=== PATIENT | female | born 1930 | race Caucasian/White ===

== ENCOUNTER → 2016-07-06 10:14 | Outpatient (CLI) | payer MEDICARE, OTHER ==
[~2016-07-06 10:14] MED LIST: ACETAMINOPHEN500 M1 PO; ALEVE220 MG PO; ASPIRIN325 MG PO; BAYER CHEWABLE81 MG PO; CALCIUM 600+D T1 TA1 PO; COLACE100 MG PO; COUMADIN5 MG PO; DILAUD1MGAMP IV; DULCOLAX10 MG/SUPP RC; HYDROCODONE-APA1 TAB PO; LEVAQUIN250 MG PO; MIRALAX17 GM PO; MULTIPLE VITAMI1 TA1 PO; NARCAN INJ0.4 MG/ML IV; NORCO 10/325 TA1 TA1 PO; ONDANSETRON4 MG/2 M3 PO; RECLAST 55 MG/100 M IV; SENOKOT-S TABLE1 TAB PO
--- NOTE | 2016-07-06 11:24 | NUR ---
1115-IV STARTED TO RIGHT FOREARM TIMES ONE ATTEMPT WITH 22G CATHETER, RECLAST INFUSION ON PUMP OVER 30 MINUTES.
[2016-07-06 11:29] VITALS: BP 142/78; Ht 160 cm
--- NOTE | 2016-07-06 14:39 | NUR ---
1150--IV DC'D. DISCHARGE INSTRUCTIONS GIVEN, PT VERBALIZES UNDERSTANDING. PT OFF UNIT VIA WC. THIERRY MARAVILLA
== END | disposition home or self-care (01) ==
LOC: D.OPS 10:14
DX: M81.0 Age-related osteoporosis without current pathological fracture (principal)

== ENCOUNTER 2017-07-10 10:44 | Outpatient (CLI) | payer MEDICARE, OTHER ==
[~2017-07-10] VITALS: Ht 160 cm; Wt 63.6 kg
[2017-07-10 11:18] VITALS: BP 123/69; Ht 160 cm; Wt 63.6 kg
== END 2017-07-10 12:05 | disposition home or self-care (01) ==
LOC: D.OPS 10:44
DX: M81.0 Age-related osteoporosis without current pathological fracture (principal)